=== PATIENT | female | born 1980 | race Two or more races ===

== ENCOUNTER 2024-02-09 08:54 | Emergency (ER) | payer OTHER ==
[2024-02-09 09:01] VITALS: BP 133/82; PULSE 94; RESP 18; TEMP 98.3; BMI 32.0
[2024-02-09] MEDS ORDERED: ACETAMINOPHEN INJECTION 100 ML ONE (09:45)
[2024-02-09] MEDS ORDERED: METOCLOPRAMIDE HCL INJECTION 10 MG/2 ML VIAL ONE (09:45)
[2024-02-09] MEDS: METOCLOPRAMIDE HCL INJECTION 10 MG/2 ML VIAL IVPUSH ONE (09:53)
[2024-02-09 09:55] LABS: BASO % 0.7 % (0-2.0); EOS % 4.7 % (0-4.5); HEMATOCRIT 41.9 % (32.4-45.2); HEMOGLOBIN 14.3 GM/dL (10.7-15.3); LYMPH % 40.8 % (8-40); MCHC 34.3 g/dl (32.0-36.0); MEAN CELL VOLUME 87.7 fl (80-96); MEAN PLT VOLUME 6.7 fl (7.5-11.1); MONO % 4.2 % (3.8-10.2); NEUT % 49.6 % (42.8-82.8); PLATELET COUNT 283 10^3/uL (134-434); RBC 4.78 M/mm3 (3.60-5.2); RDW 13.7 % (11.6-15.6); WHITE BLOOD COUNT 6.6 K/mm3 (4.0-10.0)
[2024-02-09] MEDS: ACETAMINOPHEN 1000 MG/100 ML BAG IVPB ONE (10:02)
[2024-02-09 10:28] LABS: URINE APPEARANCE CLEAR; URINE BILIRUBIN NEGATIVE (NEGATIVE); URINE COLOR YELLOW; URINE GLUCOSE (UA) 3+ (NEGATIVE); URINE KETONE NEGATIVE (NEGATIVE); URINE LEUK ESTERASE NEGATIVE (NEGATIVE); URINE NITRITE NEGATIVE (NEGATIVE); URINE PROTEIN NEGATIVE (NEGATIVE); URINE UROBILINOGEN 0.2 mg/dL (0.2-1.0)
[2024-02-09 10:32] LABS: POTASSIUM 3.8 mmol/L (3.5-5.1)
[2024-02-09 10:34] LABS: CALCIUM 9.2 mg/dL (8.5-10.1)
[2024-02-09 10:35] LABS: ALBUMIN 3.7 g/dl (3.4-5.0)
[2024-02-09 10:38] LABS: CREATININE 0.6 mg/dL (0.55-1.3)
[2024-02-09 10:39] LABS: BILIRUBIN,TOTAL 0.4 mg/dL (0.2-1)
[2024-02-09 10:40] LABS: TOT PROT 7.4 g/dl (6.4-8.2)
[2024-02-09 12:52] LABS: HIV INTERPRETATION NEGATIVE (NEGATIVE)
== END 2024-02-09 11:15 | disposition home or self-care (01) ==
LOC: JER 08:54
PROC: 3E033NZ Introduction of Analgesics, Hypnotics, Sedatives into Peripheral Vein, Percutaneous Approach (ICD-10-PCS; principal; 2024-02-09)
PROC: 3E033GC Introduction of Other Therapeutic Substance into Peripheral Vein, Percutaneous Approach (ICD-10-PCS; 2024-02-09)
DX: R51.9 Headache, unspecified (principal); R42 Dizziness and giddiness; R35.89 Other polyuria; R73.9 Hyperglycemia, unspecified; R35.0 Frequency of micturition; R53.81 Other malaise
CPT/HCPCS: 36415; 80053; 81003; 82962; 83036; 85025; 86803; 87086; 87389; 99284-25; J0131